=== PATIENT | female | born 1955 | race Caucasian/White ===

== ENCOUNTER 2016-09-27 21:35 | Emergency (ER) | payer OTHER ==
[~2016-09-27] VITALS: Ht 157.5 cm; Wt 78.0 kg
--- OUTSIDE RECORDS SUMMARY | ~2016-09-27 | XMS ---
Demographics + + + | Address | No Address At This Time | | | [place] [address] | + + + | Preferred Language | Unknown | + + + | Marital Status | Unknown | + + + | Quaker Affiliation | Unknown | + + + | Race | Unknown | + + + | Ethnic Group | Unknown | + + + Author + + + | Author | [facility] | + + + | Organization | [facility] | + + + | Address | [address] | | | [place] [address] | + + + | Phone | | + + + Care Team Providers + + + + | Care Portable Machine Sander Name | Role | Phone | + + + + Unavailable | Unavailable | + + + + PROBLEMS +---------+ + + +--------+ + + | Type | Condition | ICD9-CM | [id number] | Onset | Condition | SNOMED | | | | Code | Code | Dates | Status | Code | +---------+ + + +--------+ + + | Problem | Osteoporos | | M81.0 | | Active | [id number] | | | is | | | | | | +---------+ + + +--------+ + + | Problem | Hepatic | K76.89 | | | Active | 44725230 | | | cyst | | | | | | +---------+ + + +--------+ + + | Problem | Diabetes | | E08.319 | | Active | 7512442 | | | mellitus | | | | | | | | due to | | | | | | | | underlying | | | | | | | | condition | | | | | | | | with | | | | | | | | unspecifie | | | | | | | | d diabetic | | | | | | | | | | | | | | | | retinopath | | | | | | | | y without | | | | | | | | macular | | | | | | | | edema | | | | | | +---------+ + + +--------+ + + | Problem | Back pain | | M54.9 | | Active | 782335711 | +---------+ + + +--------+ + + | Problem | Hypertensi | | I10 | | Active | 15245051 | | | on | | | | | | +---------+ + + +--------+ + + | Problem | Anxiety | F41.9 | | | Active | 814277054 | | | disorder | | | | | | +---------+ + + +--------+ + + | Problem | Candidiasi | | B37.2 | | Active | 156013193 | | | s of skin | | | | | | | | and nail | | | | | | +---------+ + + +--------+ + + | Problem | Diabetic | | E11.40 | | Active | 032268286 | | | neuropathy | | | | | | +---------+ + + +--------+ + + | Problem | Other | | I20.8 | | Active | 835028852 | | | forms of | | | | | | | | angina | | | | | | | | pectoris | | | | | | +---------+ + + +--------+ + + | Problem | Forgetfuln | R68.89 | | | Active | 28969205 | | | ess | | | | | | +---------+ + + +--------+ + + | Problem | COPD | | J44.9 | | Active | 87762137 | | | (chronic | | | | | | | | obstructiv | | | | | | | | e | | | | | | | | pulmonary | | | | | | | | disease) | | | | | | +---------+ + + +--------+ + + | Problem | Colonic | | K63.5 | | Active | 99518999 | | | polyp | | | | | | +---------+ + + +--------+ + + | Problem | Atrial | | I48.91 | | Active | 38094407 | | | fibrillati | | | | | | | | on | | | | | | +---------+ + + +--------+ + + | Problem | Urinary | | R32 | | Active | 010853490 | | | incontinen | | | | | | | | ce | | | | | | +---------+ + + +--------+ + + | Problem | Iron | | D50.9 | | Active | 69875736 | | | deficiency | | | | | | | | anemia | | | | | | +---------+ + + +--------+ + + | Problem | Diabetes | E11.9 | | | Active | 483922697 | | | type 2, | | | | | | | | controlled | | | | | | +---------+ + + +--------+ + + | Problem | Right | M75.101 | | | Active | 3486005774 | | | rotator | | | | | 0778778 | | | cuff tear | | | | | | +---------+ + + +--------+ + + | Problem | Liver cyst | K76.89 | | | Active | 54080613 | +---------+ + + +--------+ + + | Problem | Seizure | | G40.909 | | Active | 959759771 | | | disorder | | | | | | +---------+ + + +--------+ + + | Problem | Hyperlipid | | E78.5 | | Active | 05824502 | | | emia | | | | | | +---------+ + + +--------+ + + | Problem | Gout | | M10.9 | | Active | 14728235 | +---------+ + + +--------+ + + | Problem | Strain of | S86.911A | | | Active | | | | right knee | | | | | | | | and leg | | | | | | +---------+ + + +--------+ + + | Problem | Postmenopa | | Z78.0 | | Active | 09313388 | | | usal | | | | | | +---------+ + + +--------+ + + | Problem | Poorly | E11.65 | | | Active | 9448229440 | | | controlled | | | | | 10986 | | | diabetes | | | | | | | | mellitus | | | | | | +---------+ + + +--------+ + + | Problem | Strain of | S86.912A | | | Active | | | | knee and | | | | | | | | leg, left | | | | | | +---------+ + + +--------+ + + | Problem | High risk | Z79.899 | | | Active | 303600051 | | | medication | | | | | | | | use | | | | | | +---------+ + + +--------+ + + | Problem | JAYE | G47.33 | | | Active | 28238313 | | | (obstructi | | | | | | | | ve sleep | | | | | | | | apnea) | | | | | | +---------+ + + +--------+ + + | Problem | GEE | K75.81 | | | Active | 732282446 | | | (nonalcoho | | | | | | | | lic | | | | | | | | steatohepa | | | | | | | | titis) | | | | | | +---------+ + + +--------+ + + | Problem | Insomnia | | G47.00 | | Active | 584315957 | +---------+ + + +--------+ + + | Problem | Allergic | | J30.9 | | Active | 42198507 | | | rhinitis | | | | | | +---------+ + + +--------+ + + | Problem | Oxygen | Z99.81 | | | Active | 8276949174 | | | dependent | | | | | 07 | +---------+ + + +--------+ + + | Problem | Narcolepsy | G47.419 | | | Active | 80957216 | +---------+ + + +--------+ + + | Problem | GERD | | K21.9 | | Active | 742326487 | | | (gastroeso | | | | | | | | phageal | | | | | | | | reflux | | | | | | | | disease) | | | | | | +---------+ + + +--------+ + + | Problem | History of | | Z91.81 | | Active | 450903866 | | | falling | | | | | | +---------+ + + +--------+ + + | Problem | Heart | | R01.1 | | Active | 62283070 | | | murmur | | | | | | +---------+ + + +--------+ + + | Problem | Dysphagia | | R13.10 | | Active | 74312288 | +---------+ + + +--------+ + + ALLERGIES Unknown Allergies SOCIAL HISTORY No smoking Hx information available PLAN OF CARE VITAL SIGNS MEDICATIONS Unknown Medications RESULTS No Results PROCEDURES No Known procedures IMMUNIZATIONS No Known Immunizations"
--- OUTSIDE RECORDS SUMMARY | ~2016-09-27 | XMS ---
Demographics + + + | Address | [address] | | | [place] [address] | + + + | Preferred Language | Unknown | + + + | Marital Status | Unknown | + + + | Catholic Affiliation | Unknown | + + + | Race | Unknown | + + + | Ethnic Group | Unknown | + + + Author + + + | Author | [facility] | + + + | Organization | [facility] | + + + | Address | [address] | | | [place] [address] | + + + | Phone | | + + + Care Team Providers + + + + | Care Coroner/Medical Examiner Name | Role | Phone | + + + + Unavailable | Unavailable | + + + + PROBLEMS +---------+ + + +--------+ + + | Type | Condition | ICD9-CM | [id number] | Onset | Condition | SNOMED | | | | Code | Code | Dates | Status | Code | +---------+ + + +--------+ + + | Problem | Back pain | | M54.9 | | Active | 923393088 | +---------+ + + +--------+ + + | Problem | Osteoporos | | M81.0 | | Active | 22323840 | | | is | | | | | | +---------+ + + +--------+ + + | Problem | Hypertensi | | I10 | | Active | 33264874 | | | on | | | | | | +---------+ + + +--------+ + + | Problem | Diabetes | | E08.319 | | Active | 3340251 | | | mellitus | | | [...] | F41.9 | | | Active | 054886320 | | | disorder | | | | | | +---------+ + + +--------+ + + | Problem | Candidiasi | | B37.2 | | Active | 507436620 | | | s of skin | | | | | | | | and nail | | | | | | +---------+ + + +--------+ + + | Problem | Diabetic | | E11.40 | | Active | 307942798 | | | neuropathy | | | | | | +---------+ + + +--------+ + + | Problem | Other | | I20.8 | | Active | 985331065 | | | forms of | | | | | | | | angina | | | | | | | | pectoris | | | | | | +---------+ + + +--------+ + + | Problem | COPD | | J44.9 | | Active | 16748253 | | | (chronic | | | | | | | | obstructiv | | | | | | | | e | | | | | | | | pulmonary | | | | | | | | disease) | | | | | | +---------+ + + +--------+ + + | Problem | Colonic | | K63.5 | | Active | 55477820 | | | polyp | | | | | | +---------+ + + +--------+ + + | Problem | Atrial | | I48.91 | | Active | 42766428 | | | fibrillati | | | | | | | | on | | | | | | +---------+ + + +--------+ + + | Problem | Urinary | | R32 | | Active | 220401469 | | | incontinen | | | | | | | | ce | | | | | | +---------+ + + +--------+ + + | Problem | Gout | | M10.9 | | Active | 74543404 | +---------+ + + +--------+ + + | Problem | Diabetes | E11.9 | | | Active | 811271800 | | | type 2, | | | | | | | | controlled | | | | | | +---------+ + + +--------+ + + | Problem | Postmenopa | | Z78.0 | | Active | 63812083 | | | usal | | | | | | +---------+ + + +--------+ + + | Problem | Iron | | D50.9 | | Active | 73448672 | | | deficiency | | | | | | | | anemia | | | | | | +---------+ + + +--------+ + + | Problem | Uncontroll | E11.65 | | | Active | 769725092 | | | ed | | | | | | | | diabetes | | | | | | | | mellitus | | | | | | +---------+ + + +--------+ + + | Problem | Right | M75.101 | | | Active | 3072041590 | | | rotator | | | | | 8695786 | | | cuff tear | | | | | | +---------+ + + +--------+ + + | Problem | Allergic | | J30.9 | | Active | 46748710 | | | rhinitis | | | | | | +---------+ + + +--------+ + + | Problem | Seizure | | G40.909 | | Active | 672167461 | | | disorder | | | | | | +---------+ + + +--------+ + + | Problem | Hyperlipid | | E78.5 | | Active | 96365628 | | | emia | | | [...] | K76.89 | | | Active | 85468045 | +---------+ + + +--------+ + + | Problem | Poorly | E11.65 | | | Active | 1310351426 | | | controlled | | | | | 55740 | | | diabetes | | | | | | | | mellitus | | | | | | +---------+ + + +--------+ + + | Problem | Noncomplia | Z91.14 | | | Active | 730991568 | | | nce | | | | | | | | w/medicati | | | | | | | | on | | | | | | | | treatment | | | | | | | | due to | | | | | | | | intermit | | | | | | | | use of | | | | | | | | medication | | | | | | +---------+ + + +--------+ + + | Problem | Insomnia | | G47.00 | | Active | 500943664 | +---------+ + + +--------+ + + | Problem | Noncomplia | Z91.19 | | | Active | 3884544 | | | nce | | | | | | +---------+ + + +--------+ + + | Problem | Heart | | R01.1 | | Active | 87619861 | | | murmur | | | | | | +---------+ + + +--------+ + + | Problem | GEE | K75.81 | | | Active | 133934601 | | | (nonalcoho | | | | | | | | lic | | | | | | | | steatohepa | | | | | | | | titis) | | | | | | +---------+ + + +--------+ + + | Problem | Narcolepsy | G47.419 | | | Active | 63219089 | +---------+ + + +--------+ + + | Problem | Hepatic | K76.89 | | | Active | 65204081 | | | cyst | | | | | | +---------+ + + +--------+ + + | Problem | JAYE | G47.33 | | | Active | 74774843 | | | (obstructi | | | | | | | | ve sleep | | | | | | | | apnea) | | | | | | +---------+ + + +--------+ + + | Problem | Oxygen | Z99.81 | | | Active | 8761596208 | | | dependent | | | | | 07 | +---------+ + + +--------+ + + | Problem | History of | | Z91.81 | | Active | 562842287 | | | falling | | | | | | +---------+ + + +--------+ + + | Problem | High risk | Z79.899 | | | Active | 463442900 | | | medication | | | | | | | | use | | | | | | +---------+ + + +--------+ + + | Problem | Forgetfuln | R68.89 | | | Active | 10299680 | | | ess | | | | | | +---------+ + + +--------+ + + | Problem | Dysphagia | | R13.10 | | Active | 71917158 | +---------+ + + +--------+ + + | Problem | GERD | | K21.9 | | Active | 447694167 | | | (gastroeso | | | [...]
--- OUTSIDE RECORDS SUMMARY | ~2016-09-27 | XMS ---
Demographics + + + | Address | No Address At This Time | | | [place] [address] | + + + | Preferred Language | Unknown | + + + | Marital Status | Unknown | + + + | Uatsdin Affiliation | Unknown | + + + | Race | Unknown | + + + | Ethnic Group | Unknown | + + + Author + + + | Author | [facility] | + + + | Organization | [facility] | + + + | Address | [address] | | | [place] [address] | + + + | Phone | | + + + Care Team Providers + + + + | Care Farmworker Name | Role | Phone | + + + + Unavailable | Unavailable | + + + + PROBLEMS +---------+ + + +--------+ + + | Type | Condition | ICD9-CM | [id number] | Onset | Condition | SNOMED | | | | Code | Code | Dates | Status | Code | +---------+ + + +--------+ + + | Problem | Osteoporos | | M81.0 | | Active | 30564701 | | | is | | | | | | +---------+ + + +--------+ + + | Problem | Hepatic | K76.89 | | | Active | 12404871 | | | cyst | | | | | | +---------+ + + +--------+ + + | Problem | Diabetes | | E08.319 | | Active | 6691122 | | | mellitus | | | [...] | | M54.9 | | Active | 665585733 | +---------+ + + +--------+ + + | Problem | Hypertensi | | I10 | | Active | 91690979 | | | on | | | | | | +---------+ + + +--------+ + + | Problem | Anxiety | F41.9 | | | Active | 200442126 | | | disorder | | | | | | +---------+ + + +--------+ + + | Problem | Candidiasi | | B37.2 | | Active | 331057411 | | | s of skin | | | | | | | | and nail | | | | | | +---------+ + + +--------+ + + | Problem | Diabetic | | E11.40 | | Active | 459490074 | | | neuropathy | | | | | | +---------+ + + +--------+ + + | Problem | Other | | I20.8 | | Active | 553433691 | | | forms of | | | | | | | | angina | | | | | | | | pectoris | | | | | | +---------+ + + +--------+ + + | Problem | Forgetfuln | R68.89 | | | Active | 42295400 | | | ess | | | | | | +---------+ + + +--------+ + + | Problem | COPD | | J44.9 | | Active | 42840561 | | | (chronic | | | | | | | | obstructiv | | | | | | | | e | | | | | | | | pulmonary | | | | | | | | disease) | | | | | | +---------+ + + +--------+ + + | Problem | Colonic | | K63.5 | | Active | 43199315 | | | polyp | | | | | | +---------+ + + +--------+ + + | Problem | Atrial | | I48.91 | | Active | 88412023 | | | fibrillati | | | | | | | | on | | | | | | +---------+ + + +--------+ + + | Problem | Urinary | | R32 | | Active | 064473736 | | | incontinen | | | | | | | | ce | | | | | | +---------+ + + +--------+ + + | Problem | Iron | | D50.9 | | Active | 93639685 | | | deficiency | | | | | | | | anemia | | | | | | +---------+ + + +--------+ + + | Problem | Diabetes | E11.9 | | | Active | 910248936 | | | type 2, | | | | | | | | controlled | | | | | | +---------+ + + +--------+ + + | Problem | Right | M75.101 | | | Active | 1795313173 | | | rotator | | | | | 8841682 | | | cuff tear | | | | | | +---------+ + + +--------+ + + | Problem | Liver cyst | K76.89 | | | Active | 66831235 | +---------+ + + +--------+ + + | Problem | Seizure | | G40.909 | | Active | 077624394 | | | disorder | | | | | | +---------+ + + +--------+ + + | Problem | Hyperlipid | | E78.5 | | Active | 62141619 | | | emia | | | | | | +---------+ + + +--------+ + + | Problem | Gout | | M10.9 | | Active | 31538959 | +---------+ + + +--------+ + + | Problem | Strain of | S86.911A | | | Active | | | | right knee | | | | | | | | and leg | | | | | | +---------+ + + +--------+ + + | Problem | Postmenopa | | Z78.0 | | Active | 66661763 | | | usal | | | | | | +---------+ + + +--------+ + + | Problem | Poorly | E11.65 | | | Active | 1159875586 | | | controlled | | | | | [address] | | | diabetes | | | [...] | Z79.899 | | | Active | 952711147 | | | medication | | | | | | | | use | | | | | | +---------+ + + +--------+ + + | Problem | JAYE | G47.33 | | | Active | 77888190 | | | (obstructi | | | | | | | | ve sleep | | | | | | | | apnea) | | | | | | +---------+ + + +--------+ + + | Problem | GEE | K75.81 | | | Active | 982364768 | | | (nonalcoho | | | | | | | | lic | | | | | | | | steatohepa | | | | | | | | titis) | | | | | | +---------+ + + +--------+ + + | Problem | Insomnia | | G47.00 | | Active | 559666774 | +---------+ + + +--------+ + + | Problem | Allergic | | J30.9 | | Active | 93720656 | | | rhinitis | | | | | | +---------+ + + +--------+ + + | Problem | Oxygen | Z99.81 | | | Active | 7771444631 | | | dependent | | | | | 07 | +---------+ + + +--------+ + + | Problem | Narcolepsy | G47.419 | | | Active | 78236495 | +---------+ + + +--------+ + + | Problem | GERD | | K21.9 | | Active | 738903476 | | | (gastroeso | | | | | | | | phageal | | | | | | | | reflux | | | | | | | | disease) | | | | | | +---------+ + + +--------+ + + | Problem | History of | | Z91.81 | | Active | 943791570 | | | falling | | | | | | +---------+ + + +--------+ + + | Problem | Heart | | R01.1 | | Active | 68509244 | | | murmur | | | | | | +---------+ + + +--------+ + + | Problem | Dysphagia | | R13.10 | | Active | 53569371 | +---------+ + + +--------+ + + ALLERGIES Unknown Allergies SOCIAL HISTORY No smoking Hx information available PLAN OF CARE VITAL SIGNS MEDICATIONS Unknown Medications RESULTS No Results PROCEDURES No Known procedures IMMUNIZATIONS No Known Immunizations"
--- OUTSIDE RECORDS SUMMARY | ~2016-09-27 | XMS ---
Demographics + + + | Address | No Address At This Time | | | [place] [address] | + + + | Preferred Language | Unknown | + + + | Marital Status | Unknown | + + + | Adventism Affiliation | Unknown | + + + | Race | Unknown | + + + | Ethnic Group | Unknown | + + + Author + + + | Author | [facility] | + + + | Organization | [facility] | + + + | Address | [address] | | | [place] [address] | + + + | Phone | | + + + Care Team Providers + + + + | Care Sales Office Administrator Name | Role | Phone | + + + + Unavailable | Unavailable | + + + + PROBLEMS +---------+ + + +--------+ + + | Type | Condition | ICD9-CM | ZPD44-[id number] | Onset | Condition | SNOMED | | | | Code | Code | Dates | Status | Code | +---------+ + + +--------+ + + | Problem | Osteoporos | | M81.0 | | Active | 30352053 | | | is | | | | | | +---------+ + + +--------+ + + | Problem | Hepatic | K76.89 | | | Active | 39871952 | | | cyst | | | | | | +---------+ + + +--------+ + + | Problem | Diabetes | | E08.319 | | Active | 5073546 | | | mellitus | | | [...] | | M54.9 | | Active | 751262131 | +---------+ + + +--------+ + + | Problem | Hypertensi | | I10 | | Active | 61553936 | | | on | | | | | | +---------+ + + +--------+ + + | Problem | Anxiety | F41.9 | | | Active | 470432670 | | | disorder | | | | | | +---------+ + + +--------+ + + | Problem | Candidiasi | | B37.2 | | Active | 637381685 | | | s of skin | | | | | | | | and nail | | | | | | +---------+ + + +--------+ + + | Problem | Diabetic | | E11.40 | | Active | 777379399 | | | neuropathy | | | | | | +---------+ + + +--------+ + + | Problem | Other | | I20.8 | | Active | 174975974 | | | forms of | | | | | | | | angina | | | | | | | | pectoris | | | | | | +---------+ + + +--------+ + + | Problem | Forgetfuln | R68.89 | | | Active | 80522090 | | | ess | | | | | | +---------+ + + +--------+ + + | Problem | COPD | | J44.9 | | Active | 23052900 | | | (chronic | | | | | | | | obstructiv | | | | | | | | e | | | | | | | | pulmonary | | | | | | | | disease) | | | | | | +---------+ + + +--------+ + + | Problem | Colonic | | K63.5 | | Active | 61919715 | | | polyp | | | | | | +---------+ + + +--------+ + + | Problem | Atrial | | I48.91 | | Active | 94836855 | | | fibrillati | | | | | | | | on | | | | | | +---------+ + + +--------+ + + | Problem | Urinary | | R32 | | Active | 703157250 | | | incontinen | | | | | | | | ce | | | | | | +---------+ + + +--------+ + + | Problem | Iron | | D50.9 | | Active | 19944580 | | | deficiency | | | | | | | | anemia | | | | | | +---------+ + + +--------+ + + | Problem | Diabetes | E11.9 | | | Active | 480733916 | | | type 2, | | | | | | | | controlled | | | | | | +---------+ + + +--------+ + + | Problem | Right | M75.101 | | | Active | 8465077301 | | | rotator | | | | | 7681226 | | | cuff tear | | | | | | +---------+ + + +--------+ + + | Problem | Liver cyst | K76.89 | | | Active | 29619588 | +---------+ + + +--------+ + + | Problem | Seizure | | G40.909 | | Active | 618973613 | | | disorder | | | | | | +---------+ + + +--------+ + + | Problem | Hyperlipid | | E78.5 | | Active | 59844982 | | | emia | | | | | | +---------+ + + +--------+ + + | Problem | Gout | | M10.9 | | Active | 83407602 | +---------+ + + +--------+ + + | Problem | Strain of | S86.911A | | | Active | | | | right knee | | | | | | | | and leg | | | | | | +---------+ + + +--------+ + + | Problem | Postmenopa | | Z78.0 | | Active | 52986037 | | | usal | | | | | | +---------+ + + +--------+ + + | Problem | Poorly | E11.65 | | | Active | 7088831631 | | | controlled | | | | | [address] | | | diabetes | | | [...] | Z79.899 | | | Active | 323538489 | | | medication | | | | | | | | use | | | | | | +---------+ + + +--------+ + + | Problem | JAYE | G47.33 | | | Active | 40661197 | | | (obstructi | | | | | | | | ve sleep | | | | | | | | apnea) | | | | | | +---------+ + + +--------+ + + | Problem | GEE | K75.81 | | | Active | 980875714 | | | (nonalcoho | | | | | | | | lic | | | | | | | | steatohepa | | | | | | | | titis) | | | | | | +---------+ + + +--------+ + + | Problem | Insomnia | | G47.00 | | Active | 925561351 | +---------+ + + +--------+ + + | Problem | Allergic | | J30.9 | | Active | 43293407 | | | rhinitis | | | | | | +---------+ + + +--------+ + + | Problem | Oxygen | Z99.81 | | | Active | 3202924047 | | | dependent | | | | | 07 | +---------+ + + +--------+ + + | Problem | Narcolepsy | G47.419 | | | Active | 41935241 | +---------+ + + +--------+ + + | Problem | GERD | | K21.9 | | Active | 073222851 | | | (gastroeso | | | | | | | | phageal | | | | | | | | reflux | | | | | | | | disease) | | | | | | +---------+ + + +--------+ + + | Problem | History of | | Z91.81 | | Active | 470524376 | | | falling | | | | | | +---------+ + + +--------+ + + | Problem | Heart | | R01.1 | | Active | 02359392 | | | murmur | | | | | | +---------+ + + +--------+ + + | Problem | Dysphagia | | R13.10 | | Active | 90187820 | +---------+ + + +--------+ + + ALLERGIES Unknown Allergies SOCIAL HISTORY No smoking Hx information available PLAN OF CARE VITAL SIGNS MEDICATIONS Unknown Medications RESULTS No Results PROCEDURES No Known procedures IMMUNIZATIONS No Known Immunizations"
--- OUTSIDE RECORDS SUMMARY | ~2016-09-27 | XMS ---
Demographics + + + | Address | [address] | | | [place] [address] | + + + | Preferred Language | Unknown | + + + | Marital Status | Unknown | + + + | Hinduism Affiliation | Unknown | + + + | Race | Unknown | + + + | Ethnic Group | Unknown | + + + Author + + + | Author | [facility] | + + + | [facility] | + + + | Address | [address] | | | [place] [address] | + + + | Phone | | + + + Care Team Providers + + + + | Care Dog Barber Name | Role | Phone | + + + + Unavailable | Unavailable | + + + + PROBLEMS +---------+ + + +--------+ + + | Type | Condition | ICD9-CM | [id number] | Onset | Condition | SNOMED | | | | Code | Code | Dates | Status | Code | +---------+ + + +--------+ + + | Problem | Back pain | | M54.9 | | Active | [id number] | +---------+ + + +--------+ + + | Problem | Osteoporos | | M81.0 | | Active | 90327679 | | | is | | | | | | +---------+ + + +--------+ + + | Problem | Hypertensi | | I10 | | Active | 94613405 | | | on | | | | | | +---------+ + + +--------+ + + | Problem | Diabetes | | E08.319 | | Active | 2950687 | | | mellitus | | | [...] | F41.9 | | | Active | 410697897 | | | disorder | | | | | | +---------+ + + +--------+ + + | Problem | Candidiasi | | B37.2 | | Active | 794502353 | | | s of skin | | | | | | | | and nail | | | | | | +---------+ + + +--------+ + + | Problem | Diabetic | | E11.40 | | Active | 970517668 | | | neuropathy | | | | | | +---------+ + + +--------+ + + | Problem | Other | | I20.8 | | Active | 316780577 | | | forms of | | | | | | | | angina | | | | | | | | pectoris | | | | | | +---------+ + + +--------+ + + | Problem | COPD | | J44.9 | | Active | 99115952 | | | (chronic | | | | | | | | obstructiv | | | | | | | | e | | | | | | | | pulmonary | | | | | | | | disease) | | | | | | +---------+ + + +--------+ + + | Problem | Colonic | | K63.5 | | Active | 23110111 | | | polyp | | | | | | +---------+ + + +--------+ + + | Problem | Atrial | | I48.91 | | Active | 00399409 | | | fibrillati | | | | | | | | on | | | | | | +---------+ + + +--------+ + + | Problem | Urinary | | R32 | | Active | 239271912 | | | incontinen | | | | | | | | ce | | | | | | +---------+ + + +--------+ + + | Problem | Gout | | M10.9 | | Active | 57564743 | +---------+ + + +--------+ + + | Problem | Diabetes | E11.9 | | | Active | 112300038 | | | type 2, | | | | | | | | controlled | | | | | | +---------+ + + +--------+ + + | Problem | Postmenopa | | Z78.0 | | Active | 13829110 | | | usal | | | | | | +---------+ + + +--------+ + + | Problem | Iron | | D50.9 | | Active | 29744821 | | | deficiency | | | | | | | | anemia | | | | | | +---------+ + + +--------+ + + | Problem | Uncontroll | E11.65 | | | Active | 506558047 | | | ed | | | | | | | | diabetes | | | | | | | | mellitus | | | | | | +---------+ + + +--------+ + + | Problem | Right | M75.101 | | | Active | 7778736951 | | | rotator | | | | | 7525487 | | | cuff tear | | | | | | +---------+ + + +--------+ + + | Problem | Allergic | | J30.9 | | Active | 22858237 | | | rhinitis | | | | | | +---------+ + + +--------+ + + | Problem | Seizure | | G40.909 | | Active | 397629185 | | | disorder | | | | | | +---------+ + + +--------+ + + | Problem | Hyperlipid | | E78.5 | | Active | 62000507 | | | emia | | | [...] | K76.89 | | | Active | 83172851 | +---------+ + + +--------+ + + | Problem | Poorly | E11.65 | | | Active | 8950047687 | | | controlled | | | | | 91687 | | | diabetes | | | | | | | | mellitus | | | | | | +---------+ + + +--------+ + + | Problem | Noncomplia | Z91.14 | | | Active | 975969208 | | | nce | | | [...] | | G47.00 | | Active | 798411611 | +---------+ + + +--------+ + + | Problem | Noncomplia | Z91.19 | | | Active | 0763668 | | | nce | | | | | | +---------+ + + +--------+ + + | Problem | Heart | | R01.1 | | Active | 19933501 | | | murmur | | | | | | +---------+ + + +--------+ + + | Problem | GEE | K75.81 | | | Active | 655906364 | | | (nonalcoho | | | | | | | | lic | | | | | | | | steatohepa | | | | | | | | titis) | | | | | | +---------+ + + +--------+ + + | Problem | Narcolepsy | G47.419 | | | Active | 21242069 | +---------+ + + +--------+ + + | Problem | Hepatic | K76.89 | | | Active | 79306247 | | | cyst | | | | | | +---------+ + + +--------+ + + | Problem | JAYE | G47.33 | | | Active | 86718017 | | | (obstructi | | | | | | | | ve sleep | | | | | | | | apnea) | | | | | | +---------+ + + +--------+ + + | Problem | Oxygen | Z99.81 | | | Active | 9929088792 | | | dependent | | | | | 07 | +---------+ + + +--------+ + + | Problem | History of | | Z91.81 | | Active | 815290114 | | | falling | | | | | | +---------+ + + +--------+ + + | Problem | High risk | Z79.899 | | | Active | 282239980 | | | medication | | | | | | | | use | | | | | | +---------+ + + +--------+ + + | Problem | Forgetfuln | R68.89 | | | Active | 23147383 | | | ess | | | | | | +---------+ + + +--------+ + + | Problem | Dysphagia | | R13.10 | | Active | 97235080 | +---------+ + + +--------+ + + | Problem | GERD | | K21.9 | | Active | 024525718 | | | (gastroeso | | | | | | | | phageal | | | | | | | | reflux | | | | | | | | disease) | | | | | | +---------+ + + +--------+ + + ALLERGIES + + + + +--------+ | Substance | Reaction | Event Type | Date | Status | + + + + +--------+ | pantoprazole | Unknown | Non Drug | Aug, | Active | | | | Allergy | | | + + + + +--------+ | metformin | Unknown | Non Drug | Aug, | Active | | | | Allergy | | | + + + + +--------+ | salmeterol | Unknown | Non Drug | Aug, | Active | | | | Allergy | | | + + + + +--------+ | omeprazole | Unknown | Non Drug | Aug, | Active | | | | Allergy | | | + + + + +--------+ | aspartame | Unknown | Non Drug | Aug, | Active | | | | Allergy | | | + + + + +--------+ | saccharin | Unknown | Non Drug | Aug, | Active | | | | Allergy | | | + + + + +--------+ | furosemide | Unknown | Non Drug | Aug, | Active | | | | Allergy | | | + + + + +--------+ | aurelia bermeous | Unknown | Non Drug | Aug, | Active | | | | Allergy | | | + + + + +--------+ | spironolactone | Unknown | Non Drug | Aug, | Active | | | | Allergy | | | + + + + +--------+ | esomeprazole | Unknown | Non Drug | Aug, | Active | | latex | | Allergy | | | + + + + +--------+ | hydrocortisone | Unknown | Non Drug | Aug, | Active | | | | Allergy | | | + + + + +--------+ | sucralfate | Unknown | Non Drug | Aug, | Active | | | | Allergy | | | + + + + +--------+ | Gabapentin | Unknown | Non Drug | Aug, | Active | | | | Allergy | | | + + + + +--------+ SOCIAL HISTORY No smoking Hx information available PLAN OF CARE + +---------+ | Activity | Details | + +---------+ +---+ | | +---+ + + + | Follow Up | 4 Weeks Reason:null | + + + VITAL SIGNS + + + + | Height | 5 ft 2 in in | 2016-09-09 | + + + + | Weight | 159.6 lbs | 2016-09-09 | + + + + | BMI | 29.19 kg/m2 | 2016-09-09 | + + + + | Temperature | 97.0 degrees Fahrenheit | 2016-09-09 | + + + + | Heart Rate | 89 /min | 2016-09-09 | + + + + | Blood pressure systolic | 153 mm Hg | 2016-09-09 | + + + + | Blood pressure diastolic | 83 mm Hg | 2016-09-09 | + + + + MEDICATIONS + + + + + + + +--------+ | Medicati | Instruct | Dosage | Frequenc | Start | End Date | Duration | Status | | on | ions | | y | Date | | | | + + + + + + + +--------+ | Divalpro | Orally | 1 tablet | 12h | | | | Active | | ex | Twice a | | | | | | | | Sodium | day | | | | | | | | 500 mg | | | | | | | | + + + + + + + +--------+ | Lantus | Subcutan | | | | | | Active | | 30 units | eous one | | | | | | | | | time | | | | | | | | | daily in | | | | | | | | | pm | | | | | | | + + + + + + + +--------+ | Diltiaze | Orally | 1 | 24h | | | | Active | | m CD 120 | Once a | capsule | | | | | | | MG | day | | | | | | | + + + + + + + +--------+ | Trazodon | Orally | 1 tablet | 24h | | | | Active | | e 150 MG | Once a | at | | | | | | | | day | bedtime | | | | | | + + + + + + + +--------+ | Lyrica | Orally | 1 | | | | | Active | | 100 mg | at | capsule | | | | | | | | bedtime | | | | | | | + + + + + + + +--------+ | Tramadol | Orally | 1-2 | | 14 Naeem, | | | Active | | HCl 50 | every 6 | tablets | | 2017 | | | | | MG | hrs prn | as | | | | | | | | | needed | | | | | | | | | for pain | | | | | | + + + + + + + +--------+ | Azithrom | Orally | 2 | 24h | | | | Active | | ycin 250 | Once a | tablets | | | | | | | MG | day | on the | | | | | | | | | first | | | | | | | | | day, | | | | | | | | | then 1 | | | | | | | | | tablet | | | | | | | | | daily | | | | | | | | | for 4 | | | | | | | | | days | | | | | | + + + + + + + +--------+ | Duloxeti | Orally | 1 | | 04 Mar, | | 30 days | Active | | ne HCl | Bedtime | capsule | | 2016 | | | | | 90 MG | | | | | | | | + + + + + + + +--------+ | Lipitor | Orally | 1 tablet | 24h | 13 May, | | 30 | Active | | 10 MG | Once a | | | 2016 | | day(s) | | | | day | | | | | | | + + + + + + + +--------+ | Qvar 80 | Inhalati | 1 puff | 12h | | | | Active | | MCG/ACT | on Twice | | | | | | | | | a day | | | | | | | + + + + + + + +--------+ | Lyrica | Orally | 1 cap | | | | | Active | | 75 mg | every | | | | | | | | | morning. | | | | | | | + + + + + + + +--------+ | Fluticas | Nasally | 2 spray | 24h | | | | Active | | one | Once a | in each | | | | | | | Propiona | day | nostril | | | | | | | te 50 | | | | | | | | | MCG/ACT | | | | | | | | + + + + + + + +--------+ | Ranitidi | orally | 1 tab | 12h | 06 Apr, | | 30 | Active | | ne 150mg | twice a | | | 2017 | | | | | | day | | | | | | | + + + + + + + +--------+ | Lidocain | External | 1 | | | | | Active | | e HCl 2 | ly PRN | applicat | | | | | | | % | | ion to | | | | | | | | | affected | | | | | | | | | area as | | | | | | | | | needed | | | | | | + + + + + + + +--------+ | Allopuri | Orally | 1 tablet | 24h | | | | Active | | nol 300 | Once a | | | | | | | | MG | day | | | | | | | + + + + + + + +--------+ | Lisinopr | Orally | 1 tablet | 24h | | | | Active | | il 10 MG | Once a | | | | | | | | | day | | | | | | | + + + + + + + +--------+ | Monteluk | Orally | 1 tablet | 24h | | | 90 days | Active | | ast | Once a | in the | | | | | | | Sodium | day | evening | | | | | | | 10 mg | | | | | | | | + + + + + + + +--------+ | Tramadol | Orally | 1 tablet | 6h | | | | Active | | HCl 50 | every 6 | as | | | | | | | MG | hrs | needed | | | | | | + + + + + + + +--------+ RESULTS + +--------+ + + | Name | Result | Date | Reference Range | + +--------+ + + | TSH | | 2016-09-09 | | + +--------+ + + | TSH | | | | + +--------+ + + | Lipid Panel | | 2016-09-09 | | + +--------+ + + | Cholesterol, Total | | | | + +--------+ + + | Triglycerides | | | | + +--------+ + + | HDL Cholesterol | | | | + +--------+ + + | VLDL Cholesterol | | | | | Wilver | | | | + +--------+ + + | LDL Cholesterol | | | | | Calc | | | | + +--------+ + + | Comprehensive | | 2016-09-09 | | | Metabolic Panel | | | | + +--------+ + + | Microalbumin, Urine | | 2016-09-09 | | | (Random) | | | | + +--------+ + + | MICROALB, URINE | | | | + +--------+ + + | MICROALB/CREAT | | | | + +--------+ + + | CREATININE, URINE | | | | | (RANDOM) | | | | + +--------+ + + | HGB A1C A1C | | 2016-09-09 | | + +--------+ + + | Gluc Mean | | | | + +--------+ + + | Hgb A1c | 11.4 | | | + +--------+ + + | CBC with | | 2016-09-09 | | | Differential Count | | | | + +--------+ + + PROCEDURES + + + + + | Procedure | Date Ordered | Related Diagnosis | Body Site | + + + + + | Est Level IV | September 09, 2016 | | | | Extended | | | | + + + + + | HEMOGLOBIN A1C | September 09, 2016 | | | | LEVEL > 9.0% | | | | + + + + + | [facility] MED/CURRENT | September 09, 2016 | | | | MED MERGE | | | | + + + + + IMMUNIZATIONS No Known Immunizations"
--- OUTSIDE RECORDS SUMMARY | ~2016-09-27 | XMS ---
Demographics + + + | Address | No Address At This Time | | | [place] [address] | + + + | Preferred Language | Unknown | + + + | Marital Status | Unknown | + + + | Protestant Affiliation | Unknown | + + + | Race | Unknown | + + + | Ethnic Group | Unknown | + + + Author + + + | Author | [facility] | + + + | Organization | [facility] | + + + | Address | [address] | | | [place] [address] | + + + | Phone | | + + + Care Team Providers + + + + | Care Cigarette Paper Tester Name | Role | Phone | + + + + Unavailable | Unavailable | + + + + PROBLEMS +---------+ + + +--------+ + + | Type | Condition | ICD9-CM | [id number] | Onset | Condition | SNOMED | | | | Code | Code | Dates | Status | Code | +---------+ + + +--------+ + + | Problem | Osteoporos | | M81.0 | | Active | 40669596 | | | is | | | | | | +---------+ + + +--------+ + + | Problem | Hepatic | K76.89 | | | Active | 06319470 | | | cyst | | | | | | +---------+ + + +--------+ + + | Problem | Diabetes | | E08.319 | | Active | 9674200 | | | mellitus | | | [...] | | M54.9 | | Active | 125872516 | +---------+ + + +--------+ + + | Problem | Hypertensi | | I10 | | Active | 57677296 | | | on | | | | | | +---------+ + + +--------+ + + | Problem | Anxiety | F41.9 | | | Active | 002081952 | | | disorder | | | | | | +---------+ + + +--------+ + + | Problem | Candidiasi | | B37.2 | | Active | 271233583 | | | s of skin | | | | | | | | and nail | | | | | | +---------+ + + +--------+ + + | Problem | Diabetic | | E11.40 | | Active | 975113381 | | | neuropathy | | | | | | +---------+ + + +--------+ + + | Problem | Other | | I20.8 | | Active | 401369797 | | | forms of | | | | | | | | angina | | | | | | | | pectoris | | | | | | +---------+ + + +--------+ + + | Problem | Forgetfuln | R68.89 | | | Active | 77016169 | | | ess | | | | | | +---------+ + + +--------+ + + | Problem | COPD | | J44.9 | | Active | 91453713 | | | (chronic | | | | | | | | obstructiv | | | | | | | | e | | | | | | | | pulmonary | | | | | | | | disease) | | | | | | +---------+ + + +--------+ + + | Problem | Colonic | | K63.5 | | Active | 66947882 | | | polyp | | | | | | +---------+ + + +--------+ + + | Problem | Atrial | | I48.91 | | Active | 52998579 | | | fibrillati | | | | | | | | on | | | | | | +---------+ + + +--------+ + + | Problem | Urinary | | R32 | | Active | 086917420 | | | incontinen | | | | | | | | ce | | | | | | +---------+ + + +--------+ + + | Problem | Iron | | D50.9 | | Active | 95336475 | | | deficiency | | | | | | | | anemia | | | | | | +---------+ + + +--------+ + + | Problem | Diabetes | E11.9 | | | Active | 016314872 | | | type 2, | | | | | | | | controlled | | | | | | +---------+ + + +--------+ + + | Problem | Right | M75.101 | | | Active | 9164886850 | | | rotator | | | | | 0314860 | | | cuff tear | | | | | | +---------+ + + +--------+ + + | Problem | Liver cyst | K76.89 | | | Active | 38200317 | +---------+ + + +--------+ + + | Problem | Seizure | | G40.909 | | Active | 889414250 | | | disorder | | | | | | +---------+ + + +--------+ + + | Problem | Hyperlipid | | E78.5 | | Active | 26444274 | | | emia | | | | | | +---------+ + + +--------+ + + | Problem | Gout | | M10.9 | | Active | 85781867 | +---------+ + + +--------+ + + | Problem | Strain of | S86.911A | | | Active | | | | right knee | | | | | | | | and leg | | | | | | +---------+ + + +--------+ + + | Problem | Postmenopa | | Z78.0 | | Active | 70840175 | | | usal | | | | | | +---------+ + + +--------+ + + | Problem | Poorly | E11.65 | | | Active | 6959030381 | | | controlled | | | | | [address] | | | diabetes | | | [...] | Z79.899 | | | Active | 082518380 | | | medication | | | | | | | | use | | | | | | +---------+ + + +--------+ + + | Problem | JAYE | G47.33 | | | Active | 74874579 | | | (obstructi | | | | | | | | ve sleep | | | | | | | | apnea) | | | | | | +---------+ + + +--------+ + + | Problem | GEE | K75.81 | | | Active | 589460530 | | | (nonalcoho | | | | | | | | lic | | | | | | | | steatohepa | | | | | | | | titis) | | | | | | +---------+ + + +--------+ + + | Problem | Insomnia | | G47.00 | | Active | 737111163 | +---------+ + + +--------+ + + | Problem | Allergic | | J30.9 | | Active | 99036249 | | | rhinitis | | | | | | +---------+ + + +--------+ + + | Problem | Oxygen | Z99.81 | | | Active | 4232959453 | | | dependent | | | | | 07 | +---------+ + + +--------+ + + | Problem | Narcolepsy | G47.419 | | | Active | 19907235 | +---------+ + + +--------+ + + | Problem | GERD | | K21.9 | | Active | 425634581 | | | (gastroeso | | | | | | | | phageal | | | | | | | | reflux | | | | | | | | disease) | | | | | | +---------+ + + +--------+ + + | Problem | History of | | Z91.81 | | Active | 379761272 | | | falling | | | | | | +---------+ + + +--------+ + + | Problem | Heart | | R01.1 | | Active | 72942193 | | | murmur | | | | | | +---------+ + + +--------+ + + | Problem | Dysphagia | | R13.10 | | Active | 87853858 | +---------+ + + +--------+ + + ALLERGIES Unknown Allergies SOCIAL HISTORY No smoking Hx information available PLAN OF CARE VITAL SIGNS MEDICATIONS Unknown Medications RESULTS No Results PROCEDURES No Known procedures IMMUNIZATIONS No Known Immunizations"
--- OUTSIDE RECORDS SUMMARY | ~2016-09-27 | XMS ---
Demographics + + + | Address | [address] | | | [place] [address] | + + + | Preferred Language | Unknown | + + + | Marital Status | Unknown | + + + | Druze Affiliation | Unknown | + + + | Race | Unknown | + + + | Ethnic Group | Unknown | + + + Author + + + | Author | [facility] | + + + | Organization | [facility] | + + + | Address | [address] | | | [place] [address] | + + + | Phone | | + + + Care Team Providers + + + + | Care Cook Jelly Name | Role | Phone | + + + + Unavailable | Unavailable | + + + + PROBLEMS +---------+ + + +--------+ + + | Type | Condition | ICD9-CM | [id number] | Onset | Condition | SNOMED | | | | Code | Code | Dates | Status | Code | +---------+ + + +--------+ + + | Problem | Back pain | | M54.9 | | Active | [id number] | +---------+ + + +--------+ + + | Problem | Osteoporos | | M81.0 | | Active | 22584118 | | | is | | | | | | +---------+ + + +--------+ + + | Problem | Hypertensi | | I10 | | Active | 48753808 | | | on | | | | | | +---------+ + + +--------+ + + | Problem | Diabetes | | E08.319 | | Active | 1680590 | | | mellitus | | | [...] | F41.9 | | | Active | 350811231 | | | disorder | | | | | | +---------+ + + +--------+ + + | Problem | Candidiasi | | B37.2 | | Active | 347694250 | | | s of skin | | | | | | | | and nail | | | | | | +---------+ + + +--------+ + + | Problem | Diabetic | | E11.40 | | Active | 520929527 | | | neuropathy | | | | | | +---------+ + + +--------+ + + | Problem | Other | | I20.8 | | Active | 479548533 | | | forms of | | | | | | | | angina | | | | | | | | pectoris | | | | | | +---------+ + + +--------+ + + | Problem | COPD | | J44.9 | | Active | 72696610 | | | (chronic | | | | | | | | obstructiv | | | | | | | | e | | | | | | | | pulmonary | | | | | | | | disease) | | | | | | +---------+ + + +--------+ + + | Problem | Colonic | | K63.5 | | Active | 82180205 | | | polyp | | | | | | +---------+ + + +--------+ + + | Problem | Atrial | | I48.91 | | Active | 10284856 | | | fibrillati | | | | | | | | on | | | | | | +---------+ + + +--------+ + + | Problem | Urinary | | R32 | | Active | 404105003 | | | incontinen | | | | | | | | ce | | | | | | +---------+ + + +--------+ + + | Problem | Gout | | M10.9 | | Active | 62950388 | +---------+ + + +--------+ + + | Problem | Diabetes | E11.9 | | | Active | 094265019 | | | type 2, | | | | | | | | controlled | | | | | | +---------+ + + +--------+ + + | Problem | Postmenopa | | Z78.0 | | Active | 73550073 | | | usal | | | | | | +---------+ + + +--------+ + + | Problem | Iron | | D50.9 | | Active | 80155642 | | | deficiency | | | | | | | | anemia | | | | | | +---------+ + + +--------+ + + | Problem | Uncontroll | E11.65 | | | Active | 075713157 | | | ed | | | | | | | | diabetes | | | | | | | | mellitus | | | | | | +---------+ + + +--------+ + + | Problem | Right | M75.101 | | | Active | 1451706469 | | | rotator | | | | | 4865299 | | | cuff tear | | | | | | +---------+ + + +--------+ + + | Problem | Allergic | | J30.9 | | Active | 09199073 | | | rhinitis | | | | | | +---------+ + + +--------+ + + | Problem | Seizure | | G40.909 | | Active | 965161070 | | | disorder | | | | | | +---------+ + + +--------+ + + | Problem | Hyperlipid | | E78.5 | | Active | 94250683 | | | emia | | | [...] | K76.89 | | | Active | 35299400 | +---------+ + + +--------+ + + | Problem | Poorly | E11.65 | | | Active | 7543479329 | | | controlled | | | | | 80560 | | | diabetes | | | | | | | | mellitus | | | | | | +---------+ + + +--------+ + + | Problem | Noncomplia | Z91.14 | | | Active | 969031793 | | | nce | | | [...] | | G47.00 | | Active | 834709402 | +---------+ + + +--------+ + + | Problem | Noncomplia | Z91.19 | | | Active | 5397800 | | | nce | | | | | | +---------+ + + +--------+ + + | Problem | Heart | | R01.1 | | Active | 02074315 | | | murmur | | | | | | +---------+ + + +--------+ + + | Problem | GEE | K75.81 | | | Active | 954139494 | | | (nonalcoho | | | | | | | | lic | | | | | | | | steatohepa | | | | | | | | titis) | | | | | | +---------+ + + +--------+ + + | Problem | Narcolepsy | G47.419 | | | Active | 73059129 | +---------+ + + +--------+ + + | Problem | Hepatic | K76.89 | | | Active | 73115690 | | | cyst | | | | | | +---------+ + + +--------+ + + | Problem | JAYE | G47.33 | | | Active | 35881391 | | | (obstructi | | | | | | | | ve sleep | | | | | | | | apnea) | | | | | | +---------+ + + +--------+ + + | Problem | Oxygen | Z99.81 | | | Active | 4335824445 | | | dependent | | | | | 07 | +---------+ + + +--------+ + + | Problem | History of | | Z91.81 | | Active | 595218384 | | | falling | | | | | | +---------+ + + +--------+ + + | Problem | High risk | Z79.899 | | | Active | 774615306 | | | medication | | | | | | | | use | | | | | | +---------+ + + +--------+ + + | Problem | Forgetfuln | R68.89 | | | Active | 62038656 | | | ess | | | | | | +---------+ + + +--------+ + + | Problem | Dysphagia | | R13.10 | | Active | 41028467 | +---------+ + + +--------+ + + | Problem | GERD | | K21.9 | | Active | 491343124 | | | (gastroeso | | | [...]
[~2016-09-27 21:35] MED LIST: ALBUTEROL2.5 MG/3 M INH; AMOXICILLIN500 MG PO; ASPIRIN325 MG PO; BENZONATATE200 MG PO; CYCLOBENZAPRINE10 MG PO; CYMBALTA60 MG PO; DEPAKOTE250 MG PO; DEPAKOTE500 MG PO; DILTIAZEM 24HR120 M1 PO; DILTIAZEM 24HR120 MG PO; DOCUSATE SODIU100 MG PO; DULOXETINE HCL20 MG PO; EPIPEN 2-P0.3 MG/0.3 IM; ESTRING1 EACH VAGINAL; FERROUS GLUCON324 M2 PO; FLONASE ALLERG9.9 ML NS; FUROSEMIDE20 MG PO; GUAIATUSSIN AC10 ML PO; KEFLEX500 MG PO; KETOROLAC TROME10 MG PO; LANTUS SOL100 UNIT/1 SUB-Q; LIPITOR10 MG PO; LISINOPRIL10 MG PO; LISINOPRIL20 MG PO; LYRICA100 MG PO; LYRICA75 MG PO; METHYLPREDNISOLO4 M1 PO; MONTELUKAST SOD10 MG PO; NITROSTAT0.4 MG SL; NORCO 5-325 TA1 EACH PO; NOVOLOG FL100 UNIT/1 SUB-Q; ONDANSETRON ODT8 MG PO; OXYCODONE HCL5 MG PO; PREDNISONE20 MG PO; PROAIR HFA8.5 GM INH; QVAR7.3 G1 INH; ROBAXIN-750750 MG PO; TRAMADOL HCL50 MG PO; TRAZODONE HCL150 MG PO; ULTRAM50 MG PO; ZANTAC300 MG PO; ZITHROMAX500 MG PO; ZOLOFT100 MG PO; ZYLOPRIM300 MG PO
[2016-09-27] MEDS ORDERED: FAMCICLOVIR500 MG PO (22:04)
== END 2016-09-27 22:45 | disposition home or self-care (01) ==
LOC: ED 21:35
DX: R21 Rash and other nonspecific skin eruption (principal); I10 Essential (primary) hypertension; K21.9 Gastro-esophageal reflux disease without esophagitis; E78.5 Hyperlipidemia, unspecified; G40.909 Epilepsy, unspecified, not intractable, without status epilepticus; F41.9 Anxiety disorder, unspecified; J44.9 Chronic obstructive pulmonary disease, unspecified; E11.40 Type 2 diabetes mellitus with diabetic neuropathy, unspecified; Z90.49 Acquired absence of other specified parts of digestive tract; Z90.710 Acquired absence of both cervix and uterus
CPT/HCPCS: 99282; Q0163